=== PATIENT | male | born 1940 | race Caucasian/White ===

== ENCOUNTER 2021-11-05 01:34 | Emergency (ER) | payer MEDICARE ==
[~2021-11-05] VITALS: Ht 177.8 cm; Wt 72.6 kg
[2021-11-05] MEDS ORDERED: HYDROCODONE/APAP 5-325MG TABLET ONE (02:52)
--- NOTE | 2021-11-05 02:58 | NUR ---
Patient's waife at bedside
--- NOTE | 2021-11-05 03:21 | NUR ---
Patient does not wish to proceed with medical care recommended by (Keri ). Patient given information related to possible complications, up to and including , which could occur as a result of leaving the hospital at this time. Patient verbalizes understanding of risks involved due to leaving against medical advice. Patient has signed AMA form.
[2021-11-05] MEDS ORDERED: HYDROCODONE/APAP 5-325MG TABLET PO ONE (04:00)
[2021-11-05 04:20] VITALS: BP 129/75
== END 2021-11-05 04:00 | disposition left against medical advice (07) ==
LOC: ER 01:40
DX: M54.9 Dorsalgia, unspecified (principal); Z91.81 History of falling; E78.5 Hyperlipidemia, unspecified; Z88.0 Allergy status to penicillin
CPT/HCPCS: 93005; A4663